=== PATIENT | female | born 1970 | race Caucasian/White ===

== ENCOUNTER 2023-03-20 12:54 | Outpatient (OUT) | payer BC, SELFPAY ==
--- NOTE | 2023-03-20 | VEIN_ITS ---
Patient: SHIVAM GODOY Exam Date: 03/20/2023 : 1970 Gender:F Ordering : DR ANDREA CARRENO M.D. Admission #: [id number] Family : Order #: [id number] CLICK HERE TO VIEW EXAM RADIOLOGY REPORT PROCEDURE: VC EXT VENOUS REFLUX SANTOS LMTD COMPARISON: None. INDICATIONS: Localized Edema R60.0 TECHNIQUE: Duplex imaging of the lower extremity to assess the deep and superficial venous system for the presence of deep or superficial venous incompetence and to document the location and severity of disease. The study includes evaluation of the great saphenous vein (GSV), anterior accessory saphenous vein (AASV) and small saphenous vein (SSV). Patient scanned in reverse Trendelenburg and standing. FINDINGS: RIGHT LOWER EXTREMITY: Saphenofemoral Junction Reflux: Yes 8.1mm 1.4 sec GSV: Diam (mm) Reflux/ Time (sec) Proximal Thigh 5.8 Yes 0.8 Mid Thigh 4.4 Yes 1.0 Distal Thigh 3.3 No Prox Calf 3.1 Yes 0.5 Mid Calf 3.4 No Saphenopopliteal Junction Reflux: 2.5mm No SSV: Proximal Calf 1.7 No Mid Calf 1.2 No AASV: Proximal Thigh 6.7 Yes 1.0 Mid Thigh 3.8 Yes 0.8 Distal Thigh Thrombi: No acute or chronic thrombus visualized Compressibility: Normal Flow: Normal Preforator: Mid/med calf 2.1mm with 0s reflux. Tech Note: Incompetent GSV and AASV. Patent varicose vein 3.0mm with 0s reflux. Patent varicose vein medial knee 2.6mm with 0s reflux. Patent varicose vein mid/med thigh 1.9mm with 0s reflux. LEFT LOWER EXTREMITY: Saphenofemoral Junction Reflux: Yes 6.3 mm 1.5 sec GSV: Diam (mm) Reflux/Time (sec) Proximal Thigh 7.2 Yes 1.5 Mid Thigh 5.1 No Distal Thigh 4.4 Yes 1.6 Prox Calf 2.5 No Mid Calf 2.4 No Saphenopopliteal Junction Relux: 1.8 mm Yes 0.7 SSV: Proximal Calf 1.1 No Mid Calf 1.6 No AASV: Proximal Thigh 5.2 Yes 0.9 Mid Thigh 2.3 Yes 0.8 Distal Thigh Thrombi: No acute or chronic thrombus visualized Compressibility: Normal Flow: Normal Tube Drawing Supervisor: Dist/med calf 2.4mm with 0s reflux. Tech Note: Incompetent GSV. Patent varicose vein dist/med 3.4mm with 0s reflux. Patent varicose vein mid/med thigh 2.5mm with 1.2s reflux. CONCLUSION: 1. Mildly dilated and incompetent right great saphenous and anterior accessory saphenous veins. 2. Mildly dilated and incompetent left great saphenous vein. 3. Consider consultation for possible vein disease and endovenous ablation. Dictated by: Jose A Garcia M.D. on 03/21/2023 at 13:50 Approved by: Jose A Garcia M.D. on 03/21/2023 at 13:58
== END 2023-03-20 12:55 | disposition home or self-care (01) ==
LOC: VC 12:57
PROVIDERS: PCP Family Medicine; Visit Provider Radiology Diagnostic Radiology
DX: R60.9 Edema, unspecified (principal); I83.93 Asymptomatic varicose veins of bilateral lower extremities
CPT/HCPCS: 93970

== ENCOUNTER 2023-04-04 07:53 | Outpatient (OUT) | payer BC, SELFPAY ==
--- NOTE | 2023-04-04 07:59 | CT_ITS ---
[address] [address] Patient Name: SHIVAM GODOY MRN: [id number] date: 1970 Sex: F Assigned Patient Location: CT Current Patient Location: CT Accession/Order Number: [id number] Exam Date: 04/04/2023 08:05 Report Date: 04/04/2023 08:50 At the request of: LETTY ROSADO Procedure: CT lung screening low-dose EXAMINATION: CT lung screening low-dose HISTORY: Well Adult Z00.00 ; lung cancer screening, current smoker COMPARISON: No relevant comparison available. TECHNIQUE: Axial, Coronal, and Sagittal images were created without the administration of IV contrast material. Dose reduction techniques were achieved by using automated exposure control and/or adjustment of mA and/or kV according to patient size and/or use of iterative reconstruction technique. FINDINGS: LUNGS: Numerous 5 mm nodules and less well-defined opacities scattered within the lungs, right greater than left. No appreciable infiltrates or significant chronic interstitial changes. PLEURA: No mass, effusion, or pneumothorax. VASCULATURE: No abnormality. LINDEN: Minimal adenopathy. MEDIASTINUM: Mild adenopathy. CARDIAC: No enlargement, pericardial thickening, or significant calcification. AORTA: No aneurysm or dissection. CHEST WALL: No mass or axillary adenopathy BONES: No bone lesion or fracture. LIMITED ABDOMEN: No suspicious findings. Limited images of the upper abdomen. OTHER: Negative. CT/CT lung screening low-dose IMPRESSION: 1. Lung-RADS Category 3- Probably benign. Probably benign finding(s)- short term follow up suggested; includes nodules with a low likelihood of becoming a clinically active cancer. Six month LDCT. 2. Numerous small opacities bilaterally, nonspecific. Given the mild lymphadenopathy is likely represent inflammatory changes and reactive lymph nodes. Follow-up imaging in 3 months is recommended to document clearing or to help establish baseline. Electronically authenticated by: JEAN LARA Date: 04/04/2023 08:50
== END 2023-04-04 07:54 | disposition home or self-care (01) ==
LOC: CT 07:53
PROVIDERS: PCP Family Medicine; Visit Provider Family Medicine
DX: Z00.00 Encounter for general adult medical examination without abnormal findings (principal); R91.8 Other nonspecific abnormal finding of lung field
CPT/HCPCS: 71271

== ENCOUNTER 2023-05-01 07:33 | Outpatient (OUT) | payer BC, SELFPAY ==
--- NOTE | 2023-05-01 | VEIN_ITS ---
Patient: SHIVAM GODOY. Exam Date: 05/01/2023 : 1970 Gender:F Ordering : DR LETTY ROSADO . Admission #: [id number] Family : Order #: [id number] CLICK HERE TO VIEW EXAM RADIOLOGY REPORT PROCEDURE: VC [facility]ACILITY EST [facility]ENS[facility] - OFFICE VISIT INITIAL COMPARISON: None. PROGRESS NOTES: [age] year old female who presents with a 3 year history of lower extremity heaviness, itching, throbbing. The patient's leg symptoms are symmetric bilaterally. There has been a progression of symptoms over the past 3 years. This increases with prolonged leg dependency. The patient describes an improvement with rest, elevation, support stockings, and [id number] medications. The patient denies any signs and symptoms to suggest arterial ischemia. The patient describes a family history of vein disease on paternal side. The patient has drinking and smoking history of : Current smoker and occasional alcohol consumption. Patient has a past medical history significant for hypertension, diabetes mellitus type 2, irritable bowel syndrome, hypercholesterolemia. The patient denies a history of deep venous thrombus or pulmonary embolus. See separate history and physical for medication list. No prior treatment for varicose or spider veins. Past treatment has included use of compression stockings. After review of nurse notes, history and physical exam I discussed at length the pathophysiology of venous hypertension and possible treatments, therapies and strategies available. We discussed at length the importance of elevating the lower extremities above the level of the heart, increased physical activity and compression stocking use. Ultrasound venous reflux study performed on March 20, 2023 was discussed at length with the patient. The report demonstrates mildly dilated and mildly incompetent bilateral great saphenous veins and right anterior accessory saphenous vein. PHYSICAL EXAM: The right leg demonstrates mild varicosities, a few spider veins, no ulceration, no significant edema, no skin discoloration. The left leg demonstrates mild varicosities, a few spider veins, no ulceration, no significant edema, no skin discoloration. Both thighs, legs and feet were symmetrically warm to the touch. Good posterior tibial and dorsalis pedis pulses were present bilaterally. VEIN/VC Facility EST Comprehensive IMPRESSION: 1. Mild bilateral lower extremity venous insufficiency 2. Mild bilateral lower extremity varicose veins 3. Mild bilateral lower extremity subcutaneous edema 4. No flow significant arterial disease 5. CEAP: C2, EC, , [place] PLAN: 1. Continued use of compression stockings 2. Elevated legs and increased physical activity symptomatic relief 3. Due to patient's mild condition no vein treatment is recommended at this time. Follow-up for evaluation in the future is recommended if disease progresses. Nurse notes, history and physical were reviewed and confirmed, see attached forms. The nurse was present throughout the physical exam and consultation Dictated by: Jose A Garcia M.D. on 05/01/2023 at 11:11 Approved by: Jose A Garcia M.D. on 05/01/2023 at 11:30
== END 2023-05-01 07:34 | disposition home or self-care (01) ==
LOC: VC 07:33
PROVIDERS: PCP Family Medicine; Visit Provider Family Medicine
DX: I83.813 Varicose veins of bilateral lower extremities with pain (principal)
CPT/HCPCS: G0463

== ENCOUNTER 2023-10-09 15:07 | Outpatient (OUT) | payer BC, SELFPAY ==
--- NOTE | 2023-10-09 15:14 | CT_ITS ---
The [address] [address] Patient Name: SHIVAM GODOY MRN: [id number] date: 1970 Sex: F Assigned Patient Location: CT Current Patient Location: Accession/Order Number: [id number] Exam Date: 10/09/2023 15:20 Report Date: 10/10/2023 08:02 At the request of: LETTY ROSADO Procedure: CT chest wo con EXAMINATION: CT chest wo con HISTORY: solitary pulmonary nodule R91.1 COMPARISON: 04/04/2023 TECHNIQUE: Multi-planar CT images were created with IV contrast. Axial, Coronal, and Sagittal images. Dose reduction techniques were achieved by using automated exposure control and/or adjustment of mA and/or kV according to patient size and/or use of iterative reconstruction technique. FINDINGS: LUNGS: Numerous solid and semisolid subcentimeter pulmonary nodules scattered throughout both lungs stable both in size and number from the prior exam measuring up to 6 mm in diameter, nonspecific. Minimal linear opacity in the lingula, atelectasis versus scar PLEURA: No mass, effusion, or pneumothorax. VASCULATURE: No abnormality. LINDEN: No mass or adenopathy. MEDIASTINUM: No mass or adenopathy. CARDIAC: No enlargement, pericardial thickening, or significant calcification. AORTA: No aneurysm or dissection. CHEST WALL: No mass or axillary adenopathy. BONES: No bone lesion or fracture. LIMITED ABDOMEN: No suspicious findings. Limited images of the upper abdomen. OTHER: Negative. CT/CT chest wo con IMPRESSION: Scattered subcentimeter bilateral pulmonary nodules stable in both number and size from the prior exam Electronically authenticated by: ANDREA CARRENO Date: 10/10/2023 08:02
== END 2023-10-09 15:08 | disposition home or self-care (01) ==
LOC: CT 15:08
PROVIDERS: PCP Family Medicine; Visit Provider Family Medicine
DX: R91.1 Solitary pulmonary nodule (principal)
CPT/HCPCS: 71250

== ENCOUNTER 2024-12-03 14:15 | Outpatient (OUT) | payer BC, SELFPAY ==
--- NOTE | 2024-12-03 14:19 | CT_ITS ---
The [address] [address] Patient Name: SHIVAM GODOY MRN: [id number] date: 1970 Sex: F Assigned Patient Location: CT Current Patient Location: CT Accession/Order Number: [id number] Exam Date: 12/03/2024 15:08 Report Date: 12/03/2024 15:11 At the request of: JOSEFINA GARCÍA Procedure: CT chest wo con CT Chest without contrast TECHNIQUE: Axial imaging with 2-D reconstruction. The CT exam was performed using one or more the following dose reduction techniques: Automated exposure control, adjustment of the MA and/or Kv according to patient size, or use of the iterative reconstruction technique. History: Follow-up pulmonary nodules COMPARISON: None THYROID: Unremarkable TRACHEA AND BRONCHI: Patent ESOPHAGUS: Unremarkable. HEART: Within normal limits PERICARDIAL EFFUSION: None CORONARY ARTERY CALCIFICATION: Present MEDIASTINUM: No adenopathy. No pneumoperitoneum. No mediastinal hematoma. PULMONARY LINDEN: No hilar mass or adenopathy is seen. THORACIC AORTA Unremarkable LUNG NODULE and numerous solid and semisolid bilateral pulmonary nodules redemonstrated measuring up to 6 mm in diameter. There is no enlargement or new nodules identified. LUNGS: Mild atelectasis/scarring. PLEURAL EFFUSION: None PNEUMOTHORAX: No pneumothorax seen. CHEST WALL: No abnormality AXILLA:Unremarkable BONY STRUCTURES Intact UPPER ABDOMEN: Images of the upper abdomen are noncontributory. CT/CT chest wo con IMPRESSION: Stable bilateral pulmonary nodules. No new or enlarging nodules identified. Impression dictated by: Ethan Oropeza M.D.12/03/2024 3:11 PM Dictation Location: [place] [address] Electronically authenticated by: [id number] Y Date: 12/03/2024 15:11
== END 2024-12-03 14:16 | disposition home or self-care (01) ==
LOC: CT 14:16
PROVIDERS: PCP Family Medicine; Visit Provider Nurse Practitioner Family
DX: R91.1 Solitary pulmonary nodule (principal)
CPT/HCPCS: 71250